=== PATIENT | male | born 1955 | race Caucasian/White ===

== ENCOUNTER 2024-07-20 03:07 | Emergency (ER) | payer OTHER, SELFPAY ==
[2024-07-20 03:08] VITALS: BP 164/96
[2024-07-20 03:23] VITALS: BMI 34.6
--- NOTE | 2024-07-20 03:23 | ED.GENMED ---
History of Present Illness
General
Chief Complaint: Rectal Bleeding
Source: patient
Exam Limitations: none
Time Seen by Provider: 07/20/24 03:12
Nursing documentation reviewed up to this point in time: agreed with
History of Present Illness
History of Present Illness:
This is a 69-year-old gentleman with history of hypertension, hypothyroidism who admits to moderate constipation last week, significant straining to pass a hard stool several days ago. Since then he has been taking fiber supplement on a daily basis
and did pass a more normal, soft stool 2 days ago. After passing hard stool several days ago however he has had some persistent rectal pain and feeling of a lump at his anal ridge. He awoke this morning and was concerned when there was bright red
blood on his underwear. He denies passing a bloody bowel movement, denies bloody diarrhea nor blood streaking around stool. He denies abdominal pain nor back pain, no dizziness nor lightheadedness.
He takes no anticoagulants. He denies aspirin or NSAID use.
Patient states he underwent unremarkable colonoscopy perhaps 7 years ago.
Past History
Past History
ED Past Medical History: HTN and Hypothyroidism
ED Past Surgical History: Orthopedic
Social History
Tobacco: Non-smoker
Alcohol: None
Personal:
Living: alone
Employment: Retired
Family History
Family History: Other (Noncontributory)
Phy Exam
Physical Exam
Physical Exam:
GENERAL: 69-year-old gentleman appears his stated age, awake and alert, pleasant, appears in no acute distress.
EYE: anicteric
NECK: Supple, nontender, no meningismus, no significant adenopathy.
ENT: oral mucosa is moist. No rhinorrhea.
CARDIAC: Regular rate and rhythm. no murmur.
LUNGS: Clear breath sounds bilaterally, no acute respiratory distress, no wheezes/rales/rhonchi
ABDOMEN: Soft, nondistended, without focal tenderness, no r/g, no cvat. normoactive BS. Rectal exam reveals 2 moderately tender nonthrombosed hemorrhoids along the right anal ridge with scant blood medial aspect of the more posterior external
hemorrhoid. Digital rectal exam reveals no rectal masses, scant soft brown stool within the vault that is heme-negative.
NEUROLOGICAL: Alert and oriented x3, no focal neuro deficits. Gait is jackson and steady.
SKIN: Warm and dry, normal color, skin intact. No rash.
MUSCULOSKELETAL: No C/C/E. peripheral pulses are full and equal b/l. No palpable tenderness.
PSYCH: Normal and appropriate interaction.
Course
Orders/Labs/Results
Orders:
Orders
07/20/24 03:24
Complete Blood Count/With Diff Urgent
Comprehensive Metabolic Panel Urgent
07/20/24 03:32
Anusol Hc Suppository [Anusol Hc] 25 mg RECTAL NOW STA
Abnormal Lab Results
07/20/24
03:24
RBC 4.05 L 10^6/uL
(4.70-6.10)
MCV 97.8 H fL
(80.0-94.0)
MCH 34.1 H pg
(27.0-31.0)
Monocytes % 10.5 H %
(1.7-9.3)
Chloride 109 H mmol/L
(98-107)
Glucose 102 H mg/dl
(70-99)
07/20/24 03:24
07/20/24 03:24
Vital Signs
Initial and Last Documented VS:
Initial Vital Signs
Temp Pulse Resp BP Pulse Ox
98.1 F 74 20 164/96 98
07/20/24 03:08 07/20/24 03:08 07/20/24 03:08 07/20/24 03:08 07/20/24 03:08
Last Documented Vital Signs
Temp Pulse Resp BP Pulse Ox
98.1 F 74 20 164/96 98
07/20/24 03:08 07/20/24 03:08 07/20/24 03:08 07/20/24 03:08 07/20/24 03:08
MDM/Problems Addressed
Differential Diagnosis Includes:
Patient presents with several day history of anal pain with acute bright red rectal bleeding this morning.
Exam remarkable for external hemorrhoids with scant blood medial aspect of external hemorrhoid. I suspect bleeding related to external hemorrhoids.
There is nothing in history nor exam to suspect perirectal abscess nor colonic bleeding.
Will initiate Anusol suppository.
Will check routine labs assess for potential thrombocytopenia, anemia.
At this point no indication for imaging.
Chronic conditions affecting care: HTN
*Pulse Oximetry
Patient hypoxic: no
*Critical Care Note
Total Time (30-74mins, 75-104mins- exclusive of procedures): Not Applicable
Update Note
Update Note:
04:20
Patient has had no further rectal bleeding.
Continues to deny abdominal pain and abdomen soft without appreciable tenderness.
Labs are unremarkable.
Will discharge to home with prescription for twice daily Proctofoam.
Recommend he continue daily fiber supplement/MiraLAX.
Avoid straining at stool and avoid prolonged sitting on the toilet.
Will refer to colorectal surgery for follow-up.
Return precautions discussed.
ED Attending Note
-
Portions of this chart may have been created with voice recognition software.� Occasional wrong word or��sound alike� substitutions may have occurred due to the inherent limitations of voice recognition software.
Discharge Plan
Departure
Patient Disposition: Home (Routine Discharge)
Date of Disposition: 07/20/24
Time of Disposition: 04:27
Patient with high blood pressure during this ER visit?: No
Condition: Good
Discharge Problem:
External hemorrhoid, bleeding
Instructions: Hemorrhoids - ED discharge instructions
Prescriptions:
New
hydrocortisone [Procto-Med HC] 2.5 % cream with perineal applicator
1 applic ME BID Qty: 30 0RF
No Action
levothyroxine 125 MCG tablet
125 mcg PO DAILY
irbesartan-hydrochlorothiazide 1 EACH tablet
1 ea PO DAILY
ibuprofen 200 MG tablet
400 mg PO Q6HPRN PRN (Reason: mild pain)
albuterol sulfate 1 PUFF HFA aerosol inhaler
2 puff inhalation R Q4HPRN PRN (Reason: shortness of breath)
sodium chloride [Saline Nasal] 50 SPRAYS/45 ML aerosol,spray
1 spray NS QIDPRN PRN (Reason: congestion)
metoprolol succinate 25 MG tablet extended release 24 hr
25 mg PO DAILY Qty: 30 0RF
dicyclomine 20 mg tablet
20 mg PO QID PRN (Reason: abdominal cramping) Qty: 20 0RF
Referrals:
Phi Dao MD [Active] - Call in 1-3 days for appt
Interventions
Interventions:
*Risk Screen - Suicide Last Done: 07/20/24 03:08
*General Assessment Last Done: 07/20/24 03:23
*Neglect/Abuse Screening Last Done: 07/20/24 03:08
*ED- Fall Risk Assessment Last Done: 07/20/24 03:23
*ED COVID-19 Vaccine History Last Done: 07/20/24 03:23
IH-Rowaav-Hzsdhlxhfs Assessment Last Done: 07/20/24 03:35
ED- Cardiac Assessment Last Done: 07/20/24 03:35
ED- Pulmonary Assessment Last Done: 07/20/24 03:35
Discharge Date and Time
Print Language: LAO
[2024-07-20] MEDS: ANUSOL HC 25 MG RECTAL (03:40)
[2024-07-20 03:42] LABS: % Basophils 1.4 % (0-2); % Eosinophils 5.6 % (0-6); % Immature Granulocytes 0.4 % (0-0.5); % Lymphocytes 34.5 % (20.5-51.1); % Monocytes 10.5 % (1.7-9.3); % Neutrophils 47.6 % (42.2-75.2); Absolute Basophils 0.1 10^3/uL (0-0.2); Absolute Eosinophils 0.3 10^3/uL (0-0.7); Absolute Lymphocytes 1.7 10^3/uL (1.2-3.4); Absolute Monocytes 0.5 10^3/uL (0.1-0.6); Absolute Neutrophils 2.4 10^3/uL (1.4-6.5); Hematocrit 39.6 % (39.0-52.0); Hemoglobin 13.8 g/dL (13.0-18.0); Mean Corp Hgb Conc. 34.8 g/dL (33.0-37.0); Mean Corpuscular Hgb 34.1 pg (27.0-31.0); Mean Corpuscular Volume 97.8 fL (80.0-94.0); Mean Platelet Volume 9.5 fL (7.4-10.4); Nucleated Red Blood Cells % 0 % (-); Platelet Count 180 10^3/uL (130-400); Red Blood Cell Count 4.05 10^6/uL (4.70-6.10); Red Cell Dist. Width 13.2 % (11.5-14.5)
[2024-07-20 04:07] LABS: ALT (SGPT) 22 U/L (0-50); AST (SGOT) 24 U/L (17-59); Albumin 4.4 g/dl (3.5-5.0); Alkaline Phosphatase 72 U/L (38-126); Blood Urea Nitrogen 19 mg/dl (9-20); Calcium 9.6 mg/dl (8.4-10.2); Carbon Dioxide 23 mmol/L (22-30); Chloride 109 mmol/L (98-107); Estimated Creatinine Clearance 116 ml/min; Glucose 102 mg/dl (70-99); Potassium 3.9 mmol/L (3.5-5.1); Sodium 144 mmol/L (135-145); Total Bilirubin 0.5 mg/dl (0.2-1.3); Total Protein 7.4 g/dl (6.3-8.2); eGFR > 60.00
== END 2024-07-20 04:36 | disposition home or self-care (01) ==
LOC: EMR 03:07
PROVIDERS: EMERGENCY PHYSICIAN Emergency Medicine; FAMILY PHYSICIAN Internal Medicine
DX: K64.4 Residual hemorrhoidal skin tags (principal); I10 Essential (primary) hypertension; E03.9 Hypothyroidism, unspecified
CPT/HCPCS: 99283; 80053; 85025